=== PATIENT | female | born 1950 | race Caucasian/White ===

== ENCOUNTER 2020-03-24 17:30 | Emergency (ER) | payer MEDICARE, OTHER ==
[2020-03-24 17:36] VITALS: BP 168/92; PULSE 121; TEMP 99.1; BMI 26.4
[2020-03-24] MEDS ORDERED: SODIUM CHLORIDE 1,000 ML IV STA (17:48)
[2020-03-24] MEDS ORDERED: morphine CARPU-JECT 2 MG/1 ML DISP.SYRIN IVPUSH ONE (17:53)
--- NOTE | 2020-03-24 17:58 | PDOC ---
History of Present Illness - General Chief Complaint: Urinary Problem Stated Complaint: UTI w/ BLOOD Time Seen by Provider: 03/24/20 17:40 History Source: Patient Exam Limitations: No Limitations - History of Present Illness Travel History: No Initial Comments: 03/24/20 17:54 HISTORY OF PRESENT ILLNESS: 69-year-old woman with past medical history of hy pertension, NIDDM, kidney stones presents emergency department for evaluation of dysuria with hematuria and vague left-sided lower back pain starting this morning. Patient reports over the past 3 to 4 days she has noticed some slight pain upon cessation of urination. No recent travel or sick contacts. PAST MEDICAL HISTORY: See HPI SURGICAL HISTORY: Denies ALLERGIES: No known drug allergies REVIEW OF SYSTEMS General/Constitutional: Denies fever or chills. Denies weakness, weight change. HEENT: Denies change in vision. Denies ear pain or discharge. Denies sore throat. Cardiovascular: Denies chest pain or shortness of breath. Respiratory: Denies cough, wheezing, or hemoptysis. Gastrointestinal: Denies nausea, vomiting, diarrhea or constipation. Denies rectal bleeding. Genitourinary: See HPI Musculoskeletal: Denies joint or muscle swelling or pain. Denies neck or back pain. Skin and breasts: Denies rash or easy bruising. Neurologic: Denies headache, vertigo, loss of consciousness, or loss of sensation. Psychiatric: Denies depression or anxiety. Endocrine: Denies increased thirst. Denies abnormal weight change. Hematologic/Lymphatic: Denies anemia, easy bleeding, or history of blood clots. Allergic/Immunologic: Denies hives or skin allergy. Denies latex allergy. PHYSICAL EXAM General Appearance: Well-appearing, appropriately dressed. No apparent distress, no intoxication. Gastrointestinal/Abdominal: Normal bowel sounds. Abdomen soft, non-distended. Suprapubic tenderness without rebound tenderness. No organomegaly, pulsatile mass, guarding, hernia, hepatomegaly, splenomegaly. Musculoskeletal/Extremities: Normal inspection. FROM of all extremities, normal capillary refill. Pelvis Stable. No CVA tenderness. No tenderness to extremities, pedal edema, swelling, erythema or deformity. Past History - Medical History Allergies/Adverse Reactions: Allergies Allergy/AdvReac Type Severity Reaction Status Date / Time No Known Allergies Allergy Verified 07/10/15 15:43 Home Medications: Ambulatory Orders Cephalexin Monohydrate [Keflex -] 500 mg PO Q8H #30 capsule 03/24/20 Diltiazem Cd [Cardizem Cd -] 240 mg PO DAILY 03/24/20 Olmesartan Medoxomil [Benicar (Nf)] 40 mg PO DAILY 03/24/20 Phenazopyridine HCl [Pyridium -] 200 mg PO PC #12 tablet 03/24/20 Sitagliptin Phos/Metformin HCl [Janumet 50-500 mg Tablet] 1 each PO BID 03/24/20 COPD: No Diabetes: Yes HTN: Yes - Surgical History Appendectomy: Yes - Reproductive History Is Patient Now?: No - Psycho-Social/Smoking History Smoking History: Never smoked - Substance Abuse Hx (Audit-C & DAST Scrn) How often the patient has a drink containing alcohol: Never Score: In Men: 4 or > Positive; In Women: 3 or > Positive: 0 Screen Result (Pos requires Nsg. Audit-10AR): Negative In the last yr the pt used illegal drug/Rx for NonMed reason: No Score: Yes response is considered Positive: 0 Screen Result (Positive result requires Nsg. DAST-10): Negative *Physical Exam - Vital Signs Last Vital Signs Temp Pulse Resp BP Pulse Ox 99.1 F 121 H 20 168/92 100 03/24/20 17:33 03/24/20 17:33 03/24/20 17:33 03/24/20 17:33 03/24/20 17:33 ED Treatment Course - LABORATORY CBC & Chemistry Diagram: 03/24/20 18:00 03/24/20 18:00 Medical Decision Making - Medical Decision Making 03/24/20 17:57 A/P: 69-year-old woman with dysuria, hematuria and vague left flank pain No CVA tenderness present Mild tenderness upon palpation of the suprapubic region Remainder of abdominal exam is benign CBC, CMP, urinalysis, urine culture CT of the abdomen and pelvis without contrast Normal saline 1 L IV bolus Morphine 2 mg IV push Reassess 03/24/20 19:35 Laboratory Tests 03/24/20 03/24/20 03/24/20 18:00 18:00 18:00 WBC 14.3 H RBC 4.40 Hgb 13.8 Hct 41.1 MCV 93.3 MCH 31.3 MCHC 33.6 RDW 13.5 Plt Count 300 MPV 8.4 Absolute Neuts (auto) 9.8 H Neutrophils % 68.5 Lymphocytes % 22.0 Monocytes % 6.6 Eosinophils % 2.1 Basophils % 0.8 Nucleated RBC % 0 Sodium 137 Potassium 4.1 Chloride 103 Carbon Dioxide 25 Anion Gap 8 BUN 12.2 Creatinine 0.9 Est GFR (CKD-EPI)AfAm 75.08 Est GFR (CKD-EPI)NonAf 64.78 Random Glucose 253 H Calcium 9.5 Total Bilirubin 0.3 AST 16 ALT 28 Alkaline Phosphatase 112 Total Protein 8.2 Albumin 4.2 Urine Color Red Urine Appearance Turbid Urine pH 6.5 Ur Specific [place] 1.015 Urine Protein 3+ H Urine Glucose (UA) 2+ H Urine Ketones Negative Urine Blood 3+ H Urine Nitrite Positive H Urine Bilirubin 1+ H Urine Urobilinogen 0.2 Ur Leukocyte Esterase 3+ H Urine WBC (Auto) 932.3 Urine RBC (Auto) 35654.8 Urine Casts (Auto) 404.29 U Pathogenic Cast Auto Negative U Epithel Cells (Auto) 11.1 Urine Bacteria (Auto) 609.8 Urine Yeast (Auto) Negative CT scan is read by Dr. Miranda: Multiple kidney stones present in the renal pelvis bilaterally. No evidence of hydroureter nephrosis. Diverticulosis noted. Patient has no evidence of recently passed kidney stones is likely pyelonephritis. Patient is well-appearing and is able to tolerate p.o.'s without difficulty I feel it is safe to discharge home with urology follow-up. Will give patient prescription for Keflex 500 mg 3 times daily for 10 days. I discussed the physical exam findings, ancillary test results and final diagnoses with the patient. I answered all of the patient's questions. The patient was satisfied with the care received and felt comfortable with the disch arge plan and treatment plan. The patient will call their primary care physician within 24 hours to arrange follow-up and will return to the Emergency Department with any new, persistent or worsening symptoms. Portions of this note have been documented using voice recognition software. As a result, errors may occur in the survey worker process. Effort has been made to correct all grammatical and survey worker error, but some may have been missed which may produce sporadic inaccurate survey worker or nonsensical phrases. Discharge - Discharge Information Problems reviewed: Yes Clinical Impression/Diagnosis: Pyelonephritis Condition: Stable Disposition: HOME - Admission No - Additional Discharge Information Prescriptions: Cephalexin Monohydrate [Keflex -] 500 mg PO Q8H #30 capsule Phenazopyridine HCl [Pyridium -] 200 mg PO PC #12 tablet - Follow up/Referral Referrals: Gabriel Baez MD [Primary Care Provider] - Steph Almanzar MD [Staff Physician] - - Patient Discharge Instructions Additional Instructions: Rest, drink lots of fluids: Teas, water, soups Avoid contact with others until fevers and symptoms resolved Lots of handwashing and good hygiene Continue [id number] medications for symptomatic relief Tylenol or Motrin for fever and pain Continue all of antibiotics until completed Followup with private physician in one week for repeat urinalysis/reevaluation Return to emergency department for worsened symptoms, fevers, dehydration - Post Discharge Activity
[2020-03-24] MEDS ORDERED: MORPHINE SULFATE 2 MG/ML VIAL ONE (18:01)
[2020-03-24 18:19] LABS: BASO % 0.8 % (0-2.0); EOS % 2.1 % (0-4.5); HEMATOCRIT 41.1 % (32.4-45.2); HEMOGLOBIN 13.8 GM/dL (10.7-15.3); MCH 31.3 pg (25.7-33.7); MCHC 33.6 g/dl (32.0-36.0); MEAN CELL VOLUME 93.3 fl (80-96); MEAN PLT VOLUME 8.4 fl (7.5-11.1); MONO % 6.6 % (3.8-10.2); NEUT % 68.5 % (42.8-82.8); PLATELET COUNT 300 K/MM3 (134-434); RDW 13.5 % (11.6-15.6); WHITE BLOOD COUNT 14.3 K/mm3 (4.0-10.0)
[2020-03-24 18:47] LABS: ALBUMIN 4.2 g/dl (3.4-5.0); BILIRUBIN,TOTAL 0.3 mg/dL (0.2-1); BLOOD UREA NITROGEN 12.2 mg/dL (7-18); CALCIUM 9.5 mg/dL (8.5-10.1); CREATININE 0.9 mg/dL (0.55-1.3); POTASSIUM 4.1 mmol/L (3.5-5.1); TOT PROT 8.2 g/dl (6.4-8.2)
[2020-03-24 19:24] LABS: URINE APPEARANCE TURBID; URINE COLOR RED
[2020-03-24 19:25] LABS: PH,URINE 6.5 (5.0-8.0); URINE BILIRUBIN 1+ (NEGATIVE); URINE GLUCOSE (UA) 2+ (NEGATIVE); URINE KETONE NEGATIVE (NEGATIVE); URINE PROTEIN 3+ (NEGATIVE)
[2020-03-24 19:26] LABS: EPI CELLS 11.1 /uL (0-25.1); HYALINE CASTS 404.29 /uL (0-3.1); URINE BACTERIA 609.8 /uL (0-1359); URINE LEUK ESTERASE 3+ (NEGATIVE); URINE NITRITE POSITIVE (NEGATIVE); URINE RBC 13710.8 /uL (0-23.9); URINE UROBILINOGEN 0.2 mg/dL (0.2-1.0); URINE WBC 932.3 /uL (0-25.8)
[2020-03-24 19:28] LABS: YEAST NEGATIVE (NEGATIVE)
== END 2020-03-24 20:10 | disposition home or self-care (01) ==
LOC: JER 17:30
PROC: 3E0333Z Introduction of Anti-inflammatory into Peripheral Vein, Percutaneous Approach (ICD-10-PCS; principal; 2020-03-24)
PROC: 3E0337Z Introduction of Electrolytic and Water Balance Substance into Peripheral Vein, Percutaneous Approach (ICD-10-PCS; 2020-03-24)
DX: N12 Tubulo-interstitial nephritis, not specified as acute or chronic (principal)
CPT/HCPCS: 36415; 74176-TC; 80053; 81003; 85025; 87086; 87186; 99285-25

== ENCOUNTER 2021-11-13 13:15 | Emergency (ER) | payer OTHER, MEDICARE ==
[2021-11-13 13:34] VITALS: BMI 27.7
[2021-11-13] MEDS ORDERED: MAG HYDROX/AL HYDROX/SIMETH -MYLANTA- ORAL SUSPENSION PO ONE (14:37)
[2021-11-13] MEDS ORDERED: ACETAMINOPHEN 1000 MG/100 ML BAG IVPB ONE (14:37)
[2021-11-13] MEDS ORDERED: FAMOTIDINE 20 MG/50 ML IVPB 20 MG/50 ML MG IVPB ONE (14:37)
[2021-11-13] MEDS ORDERED: MAG HYDROX/AL HYDROX/SIMETH 30 ML UNIT-DOSE CUP ONE (14:57)
[2021-11-13] MEDS ORDERED: ACETAMINOPHEN INJECTION 100 ML IVPB ONE (14:57)
[2021-11-13] MEDS ORDERED: INSULIN REGULAR HUMAN 100 UNITS/ML *VIAL ONE (15:22)
[2021-11-13 15:37] LABS: BASO % 0.7 % (0-2.0); EOS % 0.5 % (0-4.5); HEMATOCRIT 41.3 % (32.4-45.2); HEMOGLOBIN 14.1 GM/dL (10.7-15.3); LYMPH % 24.8 % (8-40); MCH 31.5 pg (25.7-33.7); MCHC 34.1 g/dl (32.0-36.0); MEAN CELL VOLUME 92.5 fl (80-96); MEAN PLT VOLUME 8.4 fl (7.5-11.1); MONO % 5.7 % (3.8-10.2); NEUT % 68.3 % (42.8-82.8); PLATELET COUNT 374 10^3/uL (134-434); RBC 4.47 M/mm3 (3.60-5.2); RDW 13.8 % (11.6-15.6); WHITE BLOOD COUNT 10.6 K/mm3 (4.0-10.0)
[2021-11-13 16:00] LABS: BLOOD UREA NITROGEN 13.2 mg/dL (7-18)
[2021-11-13 16:02] LABS: CALCIUM 9.7 mg/dL (8.5-10.1)
[2021-11-13 16:03] LABS: ALBUMIN 4.4 g/dl (3.4-5.0)
[2021-11-13 16:05] LABS: CREATININE 0.9 mg/dL (0.55-1.3)
[2021-11-13 16:07] LABS: BILIRUBIN,TOTAL 0.5 mg/dL (0.2-1); TOT PROT 8.8 g/dl (6.4-8.2)
[2021-11-13 16:12] LABS: PH,URINE 6.5 (5.0-8.0); URINE APPEARANCE CLEAR; URINE BILIRUBIN NEGATIVE (NEGATIVE); URINE COLOR YELLOW; URINE GLUCOSE (UA) NEGATIVE (NEGATIVE); URINE KETONE 1+ (NEGATIVE); URINE LEUK ESTERASE NEGATIVE (NEGATIVE); URINE NITRITE NEGATIVE (NEGATIVE); URINE PROTEIN NEGATIVE (NEGATIVE); URINE UROBILINOGEN 0.2 mg/dL (0.2-1.0)
[2021-11-13 18:27] VITALS: BP 132/80; PULSE 82; TEMP 98.6
== END 2021-11-13 18:33 | disposition home or self-care (01) ==
LOC: JER 13:15
PROC: 3E033GC Introduction of Other Therapeutic Substance into Peripheral Vein, Percutaneous Approach (ICD-10-PCS; principal; 2021-11-13)
DX: R10.84 Generalized abdominal pain (principal)
CPT/HCPCS: 36415; 71045-TC-FY; 76705-TC; 80053; 81003; 83690; 84484; 85025; 87077; 87086; 93005; 93010; 99285-25

== ENCOUNTER 2024-05-04 04:10 | Day surgery (SDC) | payer OTHER, MEDICARE ==
[2024-04-30 11:08] VITALS: BMI 27.3
[2024-05-04] MEDS ORDERED: ceFAZolin SODIUM 1 GM VIAL ONE (13:47)
[2024-05-04] MEDS ORDERED: ONDANSETRON 4 MG/2 ML VIAL ONE (13:51)
[2024-05-04] MEDS ORDERED: MIDAZOLAM HCL 2 MG/2 ML SINGLE DOSE VIAL ONE (14:18)
[2024-05-04 15:06] VITALS: RESP 18
[2024-05-04] MEDS ORDERED: ACETAMINOPHEN 500 MG TABLET (FP) ONE (16:18)
[2024-05-04] MEDS: ACETAMINOPHEN 500 MG TABLET (FP) PO ONE (16:21)
[2024-05-04 17:01] VITALS: BP 127/71; PULSE 77; TEMP 97.7
== END 2024-05-04 16:43 | disposition home or self-care (01) ==
LOC: JASU-SURG 04:10
PROVIDERS: ATTEND Urology
PROC: 0TF4XZZ Fragmentation in Left Kidney Pelvis, External Approach (ICD-10-PCS; principal; 2024-05-04 14:25)
DX: N20.0 Calculus of kidney (principal)
CPT/HCPCS: 82962